=== PATIENT | male | born 1935 | race Caucasian/White ===

== ENCOUNTER 2018-06-07 21:24 | Inpatient (IN) | payer MEDICARE, OTHER ==
[2018-06-07 22:06] LABS: BASOPHILS % 0.5 (0.0-1.5); EOSINOPHILS % 1.6 % (0.0-6.8); MEAN CORPUSCULAR HEMOGLOBIN 31.6 pg (28.0-34.0); MEAN CORPUSCULAR VOLUME 91.7 fl (80.0-100.0); MONOCYTES % 7.4 % (0.0-11.0); NEUTROPHILS # 4.3 # k/uL (1.4-7.7)
[2018-06-07 22:16] LABS: eGFR (African) > 60; eGFR (Non-African) > 60
[2018-06-07] MEDS ORDERED: 0.9 % SODIUM CHLORIDE 1,000 ML IV ONE (22:21)
--- NOTE | 2018-06-07 22:40 | ED Physician Documentation ---
General Adult - HISTORIAN Historian: patient, paramedics, other ([place] records) - HPI Stated Complaint: Critical Lab value from draw at 0652 today. Chief Complaint: General Adult Additional Information: Na from blood draw this am said to be 120. Papers from [place] indicate his NA from March and earlier runs 120-129. HX hypertension and multiple fractures after falls. He denies pain. Resident of [facility]. Can't contribute much to CC, HPI, ROS. No other known modifying factors or associated signs. - ROS CONST: no problems - PAST HX Past History: hypertension, other (falls) Allergies/Adverse Reactions: Allergies Allergy/AdvReac Type Severity Reaction Status Date / Time No Known Allergies Allergy Verified 10/06/13 01:16 Home Medications: Ambulatory Orders Medication Instructions Recorded Acetaminophen [Tylenol] 650 mg PO TID 10/06/13 Carbamazepine 400 mg PO TID 10/06/13 Cholecalciferol (Vitamin D3) 800 unit PO D 10/06/13 [Vitamin D3] Docusate Sodium [Colace] 200 mg PO BID 10/06/13 Lisinopril 20 mg PO D 10/06/13 Omeprazole 20 mg PO D 10/06/13 Phenytoin 50 mg PO HS 10/06/13 Phenytoin Sodium Extended 30 mg PO HS 10/06/13 [Dilantin] Phenytoin Sodium Extended 300 mg PO HS 10/06/13 [Dilantin] Tramadol HCl 50 mg PO HS 10/06/13 Ondansetron HCl Rapdis [Zofran ODT] 4 mg PO Q8 PRN #10 tab 10/07/13 Mag Hydrox/Aluminum Hyd/Simeth 30 ml DT Q4H 02/25/14 [Mylanta] Magnesium Hydroxide [Milk of 5 ml PO D 02/25/14 Magnesia] Polycarbophil [Replens] 7.5 gm PO DAILY 02/25/14 - SOCIAL HX Smoking History: non-smoker - FAMILY HX Family History: No (no signif) - VITAL SIGNS Vital Signs: Vital Signs Temp Pulse Resp BP Pulse Ox 97.5 F L 46 L 18 122/65 98 06/07/18 21:24 06/07/18 21:24 06/07/18 21:24 06/07/18 21:24 06/07/18 21:24 - REVIEWED ASSESSMENTS Nursing Assessment Reviewed: Yes Vitals Reviewed: Yes Progress - Progress Progress: Chose to be hospitalized here. [id number], admit to Dr. Jain ED Results Lab/Radiology - Lab Results Lab Results: Lab Results 06/07/18 06/07/18 21:45 21:45 WBC 7.00 K/ul K/ul (4.00-12.00) RBC 3.89 M/ul L M/ul (3.90-5.20) Hgb 12.3 g/dL g/dL (12.0-18.0) Hct 35.7 % L % (37.0-53.0) MCV 91.7 fl fl (80.0-100.0) MCH 31.6 pg pg (28.0-34.0) MCHC 34.5 g/dL g/dL (30.0-36.0) RDW 13.4 % % (11.3-14.3) Plt Count 304 K/mm3 K/mm3 (130-400) Neut % (Auto) 61.8 % % (39.0-79.0) Lymph % (Auto) 26.0 % % (16.0-50.0) Platte % (Auto) 7.4 % % (0.0-11.0) Eos % (Auto) 1.6 % % (0.0-6.8) Baso % (Auto) 0.5 (0.0-1.5) Neut # (Auto) 4.3 # k/uL # k/uL (1.4-7.7) Lymph # (Auto) 1.8 # k/uL # k/uL (0.6-4.0) Platte # (Auto) 0.5 # k/uL # k/uL (0.0-0.9) Eos # (Auto) 0.1 # k/uL # k/uL (0.0-0.6) Baso # (Auto) 0.0 # k/uL # k/uL (0.0-0.5) Reactive Lymphs % 2.6 % % (0.0-5.0) Reactive Lymphs # 0.2 # k/uL # k/uL (0.0-0.8) Sodium 118 mmol/L L* mmol/L (136-145) Potassium 4.5 mmol/L mmol/L (3.5-5.1) Chloride 83 mmol/L L mmol/L (98-107) Carbon Dioxide Pending BUN 24 mg/dL H mg/dL (9-20) Creatinine 0.69 mg/dL mg/dL (0.66-1.25) Estimated Creat Clear 63 Est GFR ( Amer) > 60 (60 - ) Est GFR (Non-Af Amer) > 60 (60 - ) Glucose 113 mg/dL H mg/dL (74-106) Calcium Pending Total Bilirubin 0.3 mg/dL mg/dL (0.2-1.3) AST 23 U/L U/L (15-46) ALT 23 U/L U/L (13-69) Alkaline Phosphatase 152 U/L H U/L (38-126) Total Protein 7.7 g/dL g/dL (6.3-8.2) Albumin 4.5 g/dL g/dL (3.5-5.0) - Orders Orders: ED Orders Category Date Time Status Continuous EKG monitoring Q1H Care 06/07/18 21:[address] IV Lock 1T Care 06/07/18 21:45 Active CHEST 1VIEW [RAD] Stat Exams 06/07/18 Taken CBC/PLATELET/DIFF Routine Lab 06/07/18 21:45 Completed CMP Routine Lab 06/07/18 21:45 Results URINALYSIS Routine Lab 06/07/18 Ordered 0.9 % Sodium Chloride [Normal Saline] 1,000 ml Med 06/07/18 22:21 Active IV Q2H EKG WITH COMPARISON Stat Ther 06/07/18 Ordered General Adult Physical Exam - PHYSICAL EXAM GENERAL APPEARANCE: no distress EENT: eye inspection normal, ENT inspection normal (dentures), pharynx normal, no signs of dehydration RESPIRATORY: no resp distress, breath sounds normal CVS: reg rate & rhythm, heart sounds normal, other (bradycardia in 40's) ABDOMEN: soft, normal bowel sounds, no distension BACK: normal inspection, other (no vertebral tenderness) SKIN: warm/dry, normal color, other (superficial abrasions scattered on face) EXTREMITIES: no evidence of injury, no edema, other (lacks full ROM/extension of several joints) NEURO: CN's nml as tested, motor nml, sensation nml Discharge Clincal Impression: Hyponatremia Referrals: Radha Jain MD [Primary Care Provider] - 2 Days Condition: Fair Disposition: 09 ADMITTED INPATIENT Decision to Admit: [id number] Decision Time: 22:36
[2018-06-08] MEDS ORDERED: 0.9 % SODIUM CHLORIDE 1,000 ML IV SCH (02:40)
[2018-06-08] MEDS ORDERED: ONDANSETRON HCL 4 MG TAB.RAPDIS PO PRN (02:40)
[2018-06-08] MEDS ORDERED: PHENYTOIN SODIUM EXTENDED 100 MG CAPSULE PO ONE ×2 (02:59→23:25)
[2018-06-08] MEDS ORDERED: MAGNESIUM OXIDE 400 MG TABLET PO ONE (05:21)
[2018-06-08] MEDS ORDERED: CARBAMAZEPINE 200 MG TABLET PO ONE (05:21)
[2018-06-08] MEDS ORDERED: CHOLECALCIFEROL (VIT D3) 1,000 UNIT TABLET PO ONE (05:22)
[2018-06-08] MEDS ORDERED: OMEPRAZOLE 20 MG CAPSULE.DR ONE (05:22)
--- NOTE | 2018-06-08 05:59 | Diagnostic Imaging Report ---
ELENITA LIMA [facility] [address] [facility] [address] [place] [address]. [id number] Report Submission Date: Jun 07, 2018 10:03:54 PM CDT Patient Study Name: NANNETTE DIAZ Date: Jun 07, 2018 9:47:49 PM CDT Modality Type: DX Gender: M Description: CHEST : 37 Institution: [facility] Physician: ELENITA LIMA Portable view chest Clinical history: Hyponatremia Findings: The heart size enlarged with pulmonary venous congestion. No pleural effusion pneumothorax or alveolar consolidation. Poor depth of inspiration results in central crowding. Impression: Cardiomegaly with pulmonary venous congestion. Electronically signed on Jun 07, 2018 10:03:54 PM CDT by: Kar WHITLEY
--- NOTE | 2018-06-08 07:10 | History and Physical Report ---
History of Present Illnes - History of Present Illness Reason for Visit: Hyponatremia History of Present Illness: Patient was sent to the ER from [facility] for hyponatremia. Routine labs showed Na 120. Baseline for him over the past few months has been 125- 129. Patient has MR with some dementia. Dr. Mejia his PCP saw him yesterday and found him to be in good health. Upon arrival to the ER, his sodium was 118 and he was found to be dehydrated. Interestingly, the patient has had numerous falls and fractures. Once on the floor and on telemetry, it was noted his HR ranges 30-50. - Past Medical History Cardiac: Hyperlipidemia. denies: CAD [employer]: Dementia (Mild), Seizure, Other (MR, ) Gastrointestinal: Diverticulosis (ic hernis), GERD, Inflam bowel disease (ulcerative coliitis), Other (diaphramat) Hepatobiliary: Other Musculoskeletal: Osteoarthritis (osteoporosis), Other (B leg fx; B feet fx; arm fx) ENT: Allergic rhinitis - Past Surgical History Past Surgical History: None - Past Family History Mother Family History: Other ([place]) Father Family History: - Past Social History Smoke: No Occupation: retired, disabled Alcohol: None Drugs: None Lives: [facility] Domestic Violence: Negative - Health Maintenance Health Maintenance: Cholesterol, Tetanus (2007), Influenza Vaccine (2012), Pneumococcal Vaccine (2004), Colonoscopy Influenza Vaccine: Current for this Influenza Season Pneumonia Vaccine: Yes Resuscitation Status: Resusciation Status Resuscitation Status Full Code Review of Systems - Review of Systems Constitutional: Weakness. negative: Fever Eyes: negative: pain ENT: negative: Nose Congestion Respiratory: negative: Cough, Shortness of Breath Cardiovascular: negative: Chest Pain Gastrointestinal: negative: Nausea, Vomiting, Abdominal Pain Genitourinary: negative: Dysuria Musculoskeletal: negative: Back Pain Skin: negative: Rash Neurological: Weakness - Medications/Allergies Allergies/Adverse Reactions: Allergies Allergy/AdvReac Type Severity Reaction Status Date / Time tuberculin, purified protein Allergy Verified 06/07/18 22:51 deriva Home Medications: Home Medications Calcium Carb 600Mg/Vit D-3 400 [CALTRATE WITH D-3] 1 tab PO TID 06/07/18 Calcium Polycarbophil [Fiber Laxative] 625 mg PO BID 06/07/18 Carbamazepine [Tegretol] 400 mg PO TID 06/07/18 Hydrochlorothiazide 12.5 mg PO AM 06/07/18 Lisinopril 20 mg PO D 06/07/18 Omeprazole 40 mg PO BID 06/07/18 Phenytoin Sodium Extended [Dilantin] 300 mg PO HS 06/07/18 Phenytoin [Dilantin] 30 mg PO HS 06/07/18 Phenytoin [Dilantin] 50 mg PO HS 06/07/18 Polyethylene Glycol 3350 [[id number]] 527 gm PO D 06/07/18 Sennosides/Docusate Sodium [Senna-Docusate Sodium Tablet] 2 tab PO PM 06/07/18 Current Inpatient Medications: Current Inpatient Medications Acetaminophen (Tylenol) 650 mg PO TID [facility] Al Hydroxide/Mg Hydroxide (Milk Of Magnesia) 400 mg PO D [facility] Carbamazepine (Tegretol) 400 mg PO TID [facility] Docusate Sodium (Colace) 200 mg PO BID [facility] Sodium Chloride (Normal Saline) 1,000 mls @ 100 mls/hr IV Q10H [facility] Last Admin: 06/08/18 02:55 Dose: 100 mls/hr Lisinopril (Prinivil) 20 mg PO D [facility] Ondansetron HCl (Zofran Odt) 4 mg PO Q8 PRN PRN Reason: Nausea / Vomiting Pantoprazole Sodium (Protonix) 40 mg PO 0700 [facility] Tramadol HCl (Ultram) 50 mg PO [facility] Exam - Exam Vital Signs: Vital Signs (72 hours) 06/07/18 06/07/18 06/07/18 21:24 21:45 22:45 Temperature 97.5 F L Pulse Rate 44 L 44 L Pulse Rate [ 46 L Left Pulse ox] Respiratory 18 Rate Blood Pressure 122/65 [Right Arm] O2 Sat by Pulse 98 Oximetry 06/07/18 06/07/18 23:00 23:33 Temperature Pulse Rate 42 L Pulse Rate [ 47 L Left Pulse ox] Respiratory 18 Rate Blood Pressure 169/67 [Right Arm] O2 Sat by Pulse Oximetry General: Alert, Oriented to Person, Oriented to Place, Cooperative, No acute distress. No: Oriented to Time HEENT: Atraumatic, PERRLA, EOMI, Mouth Mucous membr. moist/Lloyd Neck: Normal Range of Motion Lungs: Clear to auscultation, Normal air movement, Speaks full Sentences Cardiovascular: Regular rate Abdomen: Normal bowel sounds, Soft, No tenderness Integumentary: Normal Extremities: No edema Neurological: Generalized Weakness Psych/Mental Status: Mental status NL, Mood NL. No: Appropriate Affect, Intact Judgment - Laboratory Results Laboratory Results: Laboratory Results 06/07/18 06/07/18 21:45 21:45 WBC 7.00 RBC 3.89 L Hgb 12.3 Hct 35.7 L MCV 91.7 MCH 31.6 MCHC 34.5 RDW 13.4 Plt Count 304 Neut % (Auto) 61.8 Lymph % (Auto) 26.0 Cherry % (Auto) 7.4 Eos % (Auto) 1.6 Baso % (Auto) 0.5 Neut # (Auto) 4.3 Lymph # (Auto) 1.8 [place] # (Auto) 0.5 Eos # (Auto) 0.1 Baso # (Auto) 0.0 Reactive Lymphs % 2.6 Reactive Lymphs # 0.2 Sodium 118 L* Potassium 4.5 Chloride 83 L Carbon Dioxide Pending BUN 24 H Creatinine 0.69 Estimated Creat Clear 63 Est GFR ( Amer) > 60 Est GFR (Non-Af Amer) > 60 Glucose 113 H Calcium Pending Total Bilirubin 0.3 AST 23 ALT 23 Alkaline Phosphatase 152 H Total Protein 7.7 Albumin 4.5 Assessment/Plan - Assessment/Plan (1) Seizure disorder Status: Chronic Current Visit: No Plan: Continue current meds. (2) Bradycardia Status: Acute Current Visit: Yes Plan: This was not evaluated by ER staff or by PCP yesterday. After talking to Dr. Mejia, his PCP, will transfer patient to [facility] for cardiology eval and possible pacemaker given his history of falls. (3) Frequent falls Status: Chronic Current Visit: No (4) Dementia Status: Chronic Current Visit: No Qualifiers: Dementia type: unspecified type Dementia behavioral disturbance: without behavioral disturbance Qualified Code(s): F03.90 - Unspecified dementia without behavioral disturbance (5) Hyponatremia Status: Acute Current Visit: Yes Plan: Patient had NS started last night. Will continue IVF. VTE Assessment - RISK FACTOR SCORE VTE RISK FACTOR SCORES: AGE OVER 60 YEARS, ANTICIPATED BED CONFINEMENT OR IMMOBILIZATION > 24 HOURS - RISK VTE MODERATE RISK: SCORE OF 2 (RISK PROXIMAL DVT 2-4%) PROPHYAXIS NEEDED
[2018-06-08 07:35] VITALS: BMI 17.7
--- NOTE | 2018-06-08 07:56 | Discharge Summary ---
Discharge Summary - Discharge Sumary History of Present Illness: Patient was sent to the ER from [facility] for hyponatremia. Routine labs showed Na 120. Baseline for him over the past few months has been 125- 129. Patient has MR with some dementia. Dr. Mejia his PCP saw him yesterday and found him to be in good health. Upon arrival to the ER, his sodium was 118 and he was found to be dehydrated. Interestingly, the patient has had numerous falls and fractures. Once on the floor and on telemetry, it was noted his HR ranges 30-50. Condition at Discharge: Stable Home Medications: Ambulatory Orders Medication Instructions Recorded Calcium Carb 600Mg/Vit D-3 400 1 tab PO TID 06/07/18 [CALTRATE WITH D-3] Calcium Polycarbophil [Fiber 625 mg PO BID 06/07/18 Laxative] Carbamazepine [Tegretol] 400 mg PO TID 06/07/18 Hydrochlorothiazide 12.5 mg PO AM 06/07/18 Lisinopril 20 mg PO D 06/07/18 Omeprazole 40 mg PO BID 06/07/18 Phenytoin Sodium Extended 300 mg PO HS 06/07/18 [Dilantin] Phenytoin [Dilantin] 30 mg PO HS 06/07/18 Phenytoin [Dilantin] 50 mg PO HS 06/07/18 Polyethylene Glycol 3350 [[id number]] 527 gm PO D 06/07/18 Sennosides/Docusate Sodium 2 tab PO PM 06/07/18 [Senna-Docusate Sodium Tablet] Consultations this Visit: None Procedures this Visit: None Allergies/Adverse Reactions: Allergies Allergy/AdvReac Type Severity Reaction Status Date / Time tuberculin, purified protein Allergy Verified 06/07/18 22:51 deriva Patient Problems: Current Active Problems Problem Status Onset Bradycardia Acute Hyponatremia Acute Discharge Summary: Patient admitted for hyponatremia. IV NS started. Telemetry showed HR 20-50. Due to concerns over frequent falls and fractures, I suspect bradycardia is not new. After discussion with patient's PCP - DR. Mejia, patient transferred to [facility] for cardiology evaluation. Hospital Course: Discharge dx;. Hyponatremia. Bradycardia. Frequent Falls. Seizure d/o. Disposition - [facility]
[2018-06-08] MEDS ORDERED: ACETAMINOPHEN 325 MG TABLET PO SCH (09:00)
[2018-06-08] MEDS ORDERED: CHOLECALCIFEROL 800 UNIT PO SCH (09:00)
[2018-06-08] MEDS ORDERED: LISINOPRIL 20 MG TABLET PO SCH (09:00)
[2018-06-08] MEDS ORDERED: CARBAMAZEPINE 400 MG PO SCH (09:00)
[2018-06-08] MEDS ORDERED: Non-Formulary 1 EACH (Omeprazole [Omeprazole] 20 MG) PO SCH (09:00)
[2018-06-08] MEDS ORDERED: POLYCARBOPHIL PO SCH (09:00)
[2018-06-08] MEDS ORDERED: CARBAMAZEPINE 200 MG TABLET PO SCH (09:00)
[2018-06-08] MEDS ORDERED: MAGNESIUM HYDROXIDE 400 MG/5 ML 30ML UDC PO ONE (10:26)
[2018-06-08] MEDS: DOCUSATE SODIUM 100 MG CAPSULE PO SCH ×2 (10:31→10:37)
[2018-06-08] MEDS: MAGNESIUM HYDROXIDE 400 MG/5 ML 30ML UDC PO SCH ×2 (10:32→10:36)
[2018-06-08 12:13] VITALS: BP 168/80
[2018-06-08] MEDS ORDERED: traMADol HCL 50 MG TABLET PO SCH (21:00)
[2018-06-09] MEDS ORDERED: PANTOPRAZOLE SODIUM 40 MG TABLET PO SCH (07:00)
== END 2018-06-08 11:15 | disposition short-term general hospital (02) | DRG 641 ==
LOC: ED 21:24 → SOUTH 23:12
PROVIDERS: ADMIT Family Medicine; ATTEND Family Medicine
DX: E87.1 Hypo-osmolality and hyponatremia (principal); G40.909 Epilepsy, unspecified, not intractable, without status epilepticus; R00.1 Bradycardia, unspecified; F03.90 Unspecified dementia, unspecified severity, without behavioral disturbance, psychotic disturbance, mood disturbance, and anxiety; R29.6 Repeated falls
CPT/HCPCS: 71045; 80053; 80185; 82565; 85025; 93005; J7030; 96365; 96366; S1016